=== PATIENT | male | born 1955 | race Caucasian/White ===

== ENCOUNTER → 2016-12-01 | Outpatient (CLI) | payer BC | LOC: RAD 10:44 | DX: S69.92XA Unspecified injury of left wrist, hand and finger(s), initial encounter (principal); S62.665A Nondisplaced fracture of distal phalanx of left ring finger, initial encounter for closed fracture | CPT/HCPCS: 73130 ==

== ENCOUNTER → 2021-07-04 | Outpatient (CLI) | payer OTHER ==
[~2021-07-04] MED LIST: Eliquis PO; NORCO 5-325 TA1 EACH PO
== END ==
LOC: EMI 10:57 → KOH-I 07-05 11:15
DX: R42 Dizziness and giddiness (principal); R29.6 Repeated falls; R93.0 Abnormal findings on diagnostic imaging of skull and head, not elsewhere classified
CPT/HCPCS: 70551

== ENCOUNTER 2021-07-27 07:56 | Emergency (ER) | payer OTHER ==
[2021-07-27] MEDS ORDERED: HYDROCODONE-AC1 EACH PO (08:50)
== END 2021-07-27 09:30 | disposition home or self-care (01) ==
LOC: ER1 07:56
DX: S82.831A Other fracture of upper and lower end of right fibula, initial encounter for closed fracture (principal); S82.61XA Displaced fracture of lateral malleolus of right fibula, initial encounter for closed fracture; S82.431A Displaced oblique fracture of shaft of right fibula, initial encounter for closed fracture; W19.XXXA Unspecified fall, initial encounter; X50.9XXA Other and unspecified overexertion or strenuous movements or postures, initial encounter
CPT/HCPCS: 29515; 73590; 73610; 99283

== ENCOUNTER 2021-10-18 06:59 | Emergency (ER) | payer OTHER ==
[~2021-10-18 06:59] MED LIST changes: +HYDROCODONE-AC1 EACH PO
[2021-10-18 07:45] LABS: HEMOGLOBIN 9.4 gm/dl (14.0-17.5); RED BLOOD COUNT 3.14 M/UL (4.20-5.50); WHITE BLOOD COUNT 5.2 K/UL (4.5-11.0)
[2021-10-18 08:25] LABS: BUN/CREATININE RATIO 33 (0-10)
== END 2021-10-18 15:59 | disposition short-term general hospital (02) ==
LOC: ER1 06:59
PROVIDERS: Emergency Medicine
DX: K92.2 Gastrointestinal hemorrhage, unspecified (principal); Z20.822 Contact with and (suspected) exposure to COVID-19
CPT/HCPCS: 36430; 80053; 82550; 82553; 84484; 85018; 85025; 85610; 85730; 86850; 86900; 86901; 86920; 93005; 96374; 99285; C9113; P9016; Q9967; U0002

== ENCOUNTER → 2021-11-08 | Outpatient (CLI) | payer OTHER | LOC: KOH-I 13:17 | DX: S82.491A Other fracture of shaft of right fibula, initial encounter for closed fracture (principal) | CPT/HCPCS: 73610 ==

== ENCOUNTER → 2021-11-08 | Outpatient (CLI) | payer OTHER | LOC: EXRD 15:18 | DX: I82.401 Acute embolism and thrombosis of unspecified deep veins of right lower extremity (principal); M79.661 Pain in right lower leg | CPT/HCPCS: 93971 ==

== ENCOUNTER → 2021-11-08 | Outpatient (CLI) | payer OTHER ==
[2021-11-08 12:36] LABS: HEMOGLOBIN 8.4 gm/dl (14.0-17.5); RED BLOOD COUNT 2.74 M/UL (4.20-5.50)
== END ==
LOC: LAB 12:10
PROVIDERS: Psychiatry & Neurology Neurology
DX: D64.9 Anemia, unspecified (principal)
CPT/HCPCS: 36415; 83540; 83550; 85025

== ENCOUNTER 2021-11-14 09:25 | Emergency (ER) | payer OTHER ==
[2021-11-14 10:39] LABS: HEMOGLOBIN 9.6 gm/dl (14.0-17.5); RED BLOOD COUNT 3.21 M/UL (4.20-5.50); WHITE BLOOD COUNT 3.4 K/UL (4.5-11.0)
[2021-11-14 11:07] LABS: BUN/CREATININE RATIO 16 (0-10)
== END 2021-11-15 02:00 | disposition home or self-care (01) ==
LOC: ER1 09:25
PROVIDERS: Emergency Medicine
DX: R60.0 Localized edema (principal); Z86.711 Personal history of pulmonary embolism
CPT/HCPCS: ECHO; 71045; 80053; 82550; 82553; 83880; 84484; 85025; 85379; 93005; 93306; 93970; 96374; 99284; J2060; Q9967

== ENCOUNTER → 2021-11-30 | Outpatient (CLI) | payer OTHER ==
[2021-11-30 09:25] LABS: HEMOGLOBIN 10.3 gm/dl (14.0-17.5); RED BLOOD COUNT 3.52 M/UL (4.20-5.50); WHITE BLOOD COUNT 4.4 K/UL (4.5-11.0)
[2021-11-30 09:45] LABS: BUN/CREATININE RATIO 17 (0-10)
== END ==
LOC: LAB 08:56
PROVIDERS: Nurse Practitioner Family
DX: D64.9 Anemia, unspecified (principal); E78.5 Hyperlipidemia, unspecified; I10 Essential (primary) hypertension; E55.9 Vitamin D deficiency, unspecified
CPT/HCPCS: 36415; 80053; 80061; 82570; 82607; 83036; 84156; 84439; 84443; 85025

== ENCOUNTER → 2021-12-09 | Day surgery (SDC) | payer OTHER ==
[~2021-12-09] MED LIST changes: +ABILIFY 5 MG TAB5 MG PO; +FOLIC ACID1 MG PO; +HYDROCHLOROTH12.5 MG PO; +MULTI-VITAMIN1 EACH PO; +NEURONTIN300 MG PO; +PAROXETINE HCL20 MG PO; +PRAMIPEXOLE DI0.5 MG PO; +VITAMIN D310 MC4 PO
== END | disposition home or self-care (01) ==
LOC: OR 05:37
DX: K29.70 Gastritis, unspecified, without bleeding (principal); K27.6 Chronic or unspecified peptic ulcer, site unspecified, with both hemorrhage and perforation; E11.9 Type 2 diabetes mellitus without complications; E78.5 Hyperlipidemia, unspecified; I10 Essential (primary) hypertension; J44.9 Chronic obstructive pulmonary disease, unspecified; Z87.891 Personal history of nicotine dependence; Z79.899 Other long term (current) drug therapy; Z20.822 Contact with and (suspected) exposure to COVID-19
CPT/HCPCS: J7030; J7120

== ENCOUNTER → 2022-03-16 | Outpatient (CLI) | payer OTHER ==
[2022-03-16 13:05] LABS: HEMOGLOBIN 12.4 gm/dl (14.0-17.5); RED BLOOD COUNT 4.19 M/UL (4.20-5.50); WHITE BLOOD COUNT 5.5 K/UL (4.5-11.0)
[2022-03-16 13:44] LABS: BUN/CREATININE RATIO 17 (0-10)
== END ==
LOC: LAB 12:40
PROVIDERS: Nurse Practitioner Family
DX: D64.9 Anemia, unspecified (principal); R42 Dizziness and giddiness; I10 Essential (primary) hypertension; E55.9 Vitamin D deficiency, unspecified
CPT/HCPCS: 36415; 80053; 82570; 82607; 83036; 84156; 84439; 84443; 85025